=== PATIENT | female | born 1960 | race Caucasian/White ===

== ENCOUNTER 2018-02-05 08:18 | Day surgery (SDC) | payer OTHER ==
[2018-02-05] MEDS ORDERED: MIDAZOLAM 1 MG/ML 2 ML INJ (10:14)
[2018-02-05] MEDS ORDERED: FENTAnyl 50 MCG/ML VIAL (10:14)
== END 2018-02-05 12:05 | disposition home or self-care (01) ==
LOC: GIL 08:18
DX: Z12.11 Encounter for screening for malignant neoplasm of colon (principal); D12.3 Benign neoplasm of transverse colon; K21.9 Gastro-esophageal reflux disease without esophagitis; B96.81 Helicobacter pylori [H. pylori] as the cause of diseases classified elsewhere; K29.60 Other gastritis without bleeding; K64.8 Other hemorrhoids
CPT/HCPCS: 43239; 87081; 88305